=== PATIENT | female | born 1980 | race Caucasian/White ===

== ENCOUNTER 2017-03-04 05:03 | Inpatient (IN) ==
[2017-03-03 09:19] LABS: MANUAL DIFF NEEDED? NO; URINE MICRO REVIEW NEEDED? NO; URINE SOURCE VOIDED
[2017-03-03 09:39] LABS: BASO% 0.2 % (0.0-0.8); BILIRUBIN URINE NEGATIVE (NEGATIVE); BLOOD URINE NEGATIVE (NEGATIVE); COLOR STRAW; GLUCOSE URINE NEGATIVE (NEGATIVE); HEMATOCRIT 45.3 % (37.0-47.0); HEMOGLOBIN 14.9 g/dL (12.0-16.0); LEUKOCYTES URINE NEGATIVE (NEGATIVE); LYMPH# 1.97 X1000 (1.2-3.4); LYMPH% 36.3 % (20.5-51.1); MCH 31.4 PG (27-31); MCHC 32.9 g/dL (33-37); MCV 95.6 FL (81-99); MONO# 0.51 X1000 (0.11-0.59); MONO% 9.4 % (1.7-9.3); MPV 9.5 FL (7.4-10.4); NEUT% 54.1 % (42.2-75.2); NITRITE URINE NEGATIVE (NEGATIVE); PH URINE 5.5; PLT 288 X1000 (130-400); PROTEIN URINE NEGATIVE (NEGATIVE); RBC 4.74 XMIL (4.2-5.4); SP GRAVITY URINE 1.007; TURBIDITY URINE CLEAR (CLEAR); UROBILINOGEN URINE NORMAL (NORMAL)
[2017-03-03 09:41] LABS: UR EPITHELIAL CELLS <10 /HPF (<10); URINE BACTERIA NEGATIVE /HPF; URINE RBC <10 /HPF (<10); URINE WBC <10 /HPF (<10)
--- NOTE | 2017-03-03 13:20 | HISTORY AND PHYSICAL ---
ADMITTING DIAGNOSIS: Dysfunction uterine bleeding with dysmenorrhea and menorrhagia. SUMMARY: Leslie Chaves is a 36-year-old, 2, para 2, who is having heavy painful menstrual cycles. She has failed medical management and an endometrial ablation. We therefore are proceeding with an abdominal hysterectomy. We will not remove her ovaries unless clinically indicated at the time of surgery. Risks, benefits, possible complications and reasonable expectations of surgery have been discussed in detail. PAST MEDICAL HISTORY: Patient has had 2 pregnancies and 2 vaginal deliveries. 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 She has had her gallbladder removed. Tonsils and adenoids have also been removed. She has had a tubal sterilization and endometrial ablation. She has significant abdominal wall laxity and Dr. Gibson will be doing an abdominoplasty following the procedure. ALLERGIES: Neosporin. CURRENT MEDICATIONS: Include Effexor, Prozac, iron and vitamins. PHYSICAL EXAMINATION: WEIGHT: Her weight is 165, blood pressure 122/82. CARDIOVASCULAR: Regular rate and rhythm without murmurs, rubs, or gallops. PULMONARY: Clear. BREASTS: No masses. ABDOMEN: Tender without rebound, rigidity, or guarding. Bowel sounds are present and normal. PELVIC: Examination shows normal external genitalia. Recent Pap smear was read as normal. The uterus is slightly enlarged and tender. There are no adnexal masses. EXTREMITIES: No clubbing, edema or cyanosis. IMPRESSION: Dysfunctional uterine bleeding with dysmenorrhea and menorrhagia. PLAN: We will proceed with abdominal hysterectomy. Following our surgery Dr. Gibson will do an abdominoplasty. Risks of surgery including pain, bleeding, infection, bowel or bladder injury, and anesthesia complications have been discussed in detail. Alternatives to this surgery were also discussed. cc: Law Vaz MD
[2017-03-04] MEDS ORDERED: NS 250 ML ONE (06:26)
[2017-03-04] MEDS ORDERED: BACITRACIN ONE (06:26)
[2017-03-04] MEDS ORDERED: METHYLENE BLUE 0.5% ONE (06:26)
[2017-03-04] MEDS ORDERED: EXPAREL 1.3% ONE (06:27)
[2017-03-04] MEDS ORDERED: PEPCID ONE (06:31)
[2017-03-04] MEDS ORDERED: REGLAN ONE (06:31)
[2017-03-04] MEDS ORDERED: LR 1,000 ML ONE ×2 (06:32→16:24)
[2017-03-04] MEDS ORDERED: TRANSDERM-SCOP ONE (06:32)
[2017-03-04] MEDS ORDERED: VALIUM ONE (06:32)
[2017-03-04] MEDS ORDERED: KEFZOL 2 GM/D5W 2 GM/50 ML IVPB ONE (06:33)
[2017-03-04 07:46] LABS: URINE MICRO REVIEW NEEDED? NO; URINE SOURCE CATH
[2017-03-04 08:05] LABS: BILIRUBIN URINE NEGATIVE (NEGATIVE); BLOOD URINE NEGATIVE (NEGATIVE); COLOR YELLOW; GLUCOSE URINE NEGATIVE (NEGATIVE); LEUKOCYTES URINE NEGATIVE (NEGATIVE); NITRITE URINE NEGATIVE (NEGATIVE); PH URINE 8.5; PROTEIN URINE NEGATIVE (NEGATIVE); SP GRAVITY URINE 1.021; TURBIDITY URINE HAZY (CLEAR); UROBILINOGEN URINE NORMAL (NORMAL)
[2017-03-04 08:07] LABS: UR EPITHELIAL CELLS <10 /HPF (<10); URINE BACTERIA NEGATIVE /HPF; URINE RBC <10 /HPF (<10); URINE WBC <10 /HPF (<10)
--- NOTE | 2017-03-04 09:27 | OPERATIVE NOTE ---
PROCEDURE DATE: 03/04/2017 SURGEON: Law Vaz MD TEACHER LIP READING: Law Perez MD ANESTHESIA: General endotracheal. OPERATION PERFORMED: Total abdominal hysterectomy. PREOPERATIVE DIAGNOSIS: Dysfunctional uterine bleeding with dysmenorrhea and menorrhagia. POSTOPERATIVE DIAGNOSIS: Dysfunctional uterine bleeding with dysmenorrhea and menorrhagia. FINDINGS: Tubes consistent with previous tubal sterilization. PROCEDURE: The uterus was somewhat hyperemic and boggy. SUMMARY: Patient is taken back to the operating room and after general endotracheal anesthesia, was placed in the supine position. The abdomen was prepped and draped in the usual fashion. Dr. Gibson marked the patient for the abdominoplasty to be able to do following my procedure. A Pfannenstiel incision was made. This incision was taken down to the fascia. The fascia was excised transversely. The underlying rectus muscles were bluntly and sharply dissected free. The rectus muscle was in midline. The peritoneum was entered. The O'Bradford-O'León retractor was placed and the bowel was packed out of the operative field. The uterus was grasped with a Gopi clamp and elevated out of the pelvis. The pelvic course of the ureters was identified. We then used the LigaSure device to grasp, cauterized, and excise the round ligament and broad ligament bilaterally. The bladder flap was created. The uterine vessels were skeletonized. The uterine vessels were grasped, cauterized, and excised using the LigaSure device. We then used straight hysterectomy clamp to clamp, excise, and ligate first the cardinal and then the uterosacral ligaments. The vaginal vault was entered and the cervix was dissected off the upper vaginal vault. Angle stitches were placed and the cuff was closed using a running Vicryl suture. The pelvic cavity was irrigated with copious amounts of sterile water. Complete hemostasis was noted. We placed Gelfoam across the top of the vagina. At this point all packs and instruments were removed. Initial sponge, instrument, and needle count were reported as correct. The peritoneum was closed using a running chromic suture. Second sponge, instrument, and needle count reported as correct. The fascia closed using running Vicryl sutures x3 with final sponge, instrument, and needle counts reported as correct. The skin edges were loosely reapproximated using francoise. Blood loss from the procedures approximately 50 mL. Patient had clear urine. She remained intubated for Dr. Gibson's abdominoplasty. cc: Law Vaz MD
[2017-03-04] MEDS ORDERED: KEFZOL 1 GM/D5W 1 GM/50 ML IVPB ONE ×2 (10:38→14:42)
[2017-03-04] MEDS ORDERED: ZOFRAN IV PRN ×2 (15:57→17:50)
[2017-03-04] MEDS ORDERED: DEMEROL IM PRN (15:57)
[2017-03-04] MEDS ORDERED: PHENERGAN IM PRN (15:57)
[2017-03-04] MEDS ORDERED: AMBIEN PO PRN (15:57)
[2017-03-04] MEDS ORDERED: ZOFRAN ODT PO PRN (15:57)
[2017-03-04] MEDS ORDERED: DULCOLAX PR PRN (15:57)
[2017-03-04] MEDS ORDERED: TORADOL IV SCH (15:57)
[2017-03-04] MEDS ORDERED: FLEET ENEMA PR PRN (15:57)
[2017-03-04] MEDS ORDERED: LEVSIN-SL SL PRN (15:57)
[2017-03-04] MEDS ORDERED: SUFENTA ONE (16:22)
[2017-03-04] MEDS ORDERED: VERSED ONE (16:22)
[2017-03-04] MEDS ORDERED: DIPRIVAN 1% ONE (16:22)
[2017-03-04] MEDS ORDERED: DEMEROL ONE (16:24)
[2017-03-04] MEDS ORDERED: TORADOL ONE (17:00)
[2017-03-04] MEDS ORDERED: STERILE WATER INJ. ONE (17:13)
[2017-03-04] MEDS ORDERED: NORCURON ONE (17:13)
[2017-03-04] MEDS ORDERED: LUBRIFRESH PM OPH OINTMENT ONE (17:13)
[2017-03-04] MEDS ORDERED: SODIUM CHLORIDE 0.9% 10 ML ONE (17:13)
[2017-03-04] MEDS ORDERED: NEOSTIGMINE ONE (17:13)
[2017-03-04] MEDS ORDERED: ROBINUL ONE (17:13)
[2017-03-04] MEDS ORDERED: ZOFRAN ONE (17:13)
[2017-03-04] MEDS ORDERED: QUELICIN (DOSE) ONE (17:14)
[2017-03-04] MEDS ORDERED: DECADRON ONE (17:14)
[2017-03-04] MEDS ORDERED: XYLOCAINE-MPF 2% ONE (17:14)
[2017-03-04] MEDS ORDERED: LR 5,000 ML ONE (17:14)
[2017-03-04] MEDS ORDERED: DEMEROL PCA VIAL ONE (17:39)
[2017-03-04] MEDS ORDERED: BENADRYL IV PRN (17:50)
[2017-03-04] MEDS ORDERED: PHENERGAN IV PRN (17:50)
[2017-03-04] MEDS ORDERED: NARCAN IV PRN (17:50)
[2017-03-04] MEDS ORDERED: LR 1,000 ML IV SCH (17:50)
[2017-03-04] MEDS ORDERED: SODIUM CHLORIDE 0.9% INJ PRN (17:50)
[2017-03-04] MEDS: LR 1,000 ML IV SCH ×2 (17:52→22:53)
[2017-03-04] MEDS: DEMEROL PCA VIAL IV PRN (17:58)
[2017-03-04] MEDS: COLACE PO SCH ×2 (18:00→22:52)
[2017-03-04] MEDS: MYLICON PO SCH ×3 (18:02→22:51)
[2017-03-04] MEDS: VITAMIN B-12 PO SCH (18:03)
[2017-03-04] MEDS: EFFEXOR PO SCH (18:07)
[2017-03-04 19:26] LABS: HEMATOCRIT 34.6 % (37.0-47.0); HEMOGLOBIN 11.5 g/dL (12.0-16.0)
[2017-03-04] MEDS: PERIDEX MT SCH ×2 (19:39→22:52)
[2017-03-04] MEDS: KEFZOL 1 GM/D5W 1 GM/50 ML IVPB IV SCH (22:52)
[2017-03-04] MEDS: TORADOL IV SCH (22:52)
[2017-03-05] MEDS: TORADOL IV SCH ×3 (04:56→16:04)
[2017-03-05 05:47] LABS: MANUAL DIFF NEEDED? NO
[2017-03-05 05:58] LABS: HEMATOCRIT 31.7 % (37.0-47.0); HEMOGLOBIN 10.6 g/dL (12.0-16.0); LYMPH# 2.12 X1000 (1.2-3.4); MCHC 33.4 g/dL (33-37); MCV 95.8 FL (81-99); MONO# 1.07 X1000 (0.11-0.59); MONO% 13.1 % (1.7-9.3); MPV 9.5 FL (7.4-10.4); NEUT% 60.9 % (42.2-75.2); PLT 242 X1000 (130-400); RBC 3.31 XMIL (4.2-5.4)
[2017-03-05] MEDS: KEFZOL 1 GM/D5W 1 GM/50 ML IVPB IV SCH ×3 (06:32→22:34)
[2017-03-05] MEDS: LR 1,000 ML IV SCH ×2 (06:33→16:13)
[2017-03-05] MEDS: DEMEROL PCA VIAL IV PRN (08:06)
[2017-03-05] MEDS: VITAMIN B-12 PO SCH (09:03)
[2017-03-05] MEDS: EFFEXOR PO SCH (09:03)
[2017-03-05] MEDS: MYLICON PO SCH ×4 (09:04→21:09)
[2017-03-05] MEDS: COLACE PO SCH ×2 (09:04→21:09)
[2017-03-05] MEDS: PERIDEX MT SCH ×2 (09:04→21:09)
[2017-03-05] MEDS ORDERED: TORADOL PO SCH (14:19)
[2017-03-05] MEDS ORDERED: D/C PCA XX ONE (15:00)
--- NOTE | 2017-03-05 16:41 | OPERATIVE NOTE ---
PROCEDURE DATE: 03/04/2017 PROCEDURE PERFORMED: Cosmetic abdominoplasty and cosmetic Vanegas mastopexy. SURGEON: Dr. Clifford Gibson. ICD 10 DIAGNOSIS CODE FOR THIS CASE: Z41.1 cosmetic surgery. CPT CODE: 78488-B abdominoplasty, 64601 mastopexy, 58050-61 mastopexy of the other side. INDICATIONS FOR PROCEDURE: This patient is a 36-year-old, white female who has had weight loss. She has had a gastric bypass and lost over 100 pounds. She has excess skin on her lower abdomen, lax muscles, and ptotic breasts. She wants to have body contouring procedures done at the same time as she has a hysterectomy performed by Dr. Vaz. She is an excellent candidate for the procedures. She was seen in the office for informed consent for both of those procedures on 02/26/2017. The consent for the abdominoplasty included the fact that she knew we would be working on her abdominal wall. The goals of the procedure was to remove the extra skin and tighten the underlying muscles. She understood the risks including infection, blood loss, blood clots in the legs, heart problems, lung problems, allergic reactions, or blood and serum collections in the operative sites that might require drainage. She understands the exact size and shape cannot be guaranteed, as with nonoperative abdomens, there can be some asymmetry from side to side. She knows her skin incisions will be from waist to waist and around the umbilicus. That is where the scars will be. She knows her old umbilicus will be brought through a new hole. She understands her abdominal sensation can be decreased by this operation for a year to year and a half on the lower abdomen. She understands she cannot do any strenuous lifting for 8 weeks. She knows she cannot have a breast reconstruction with a TRAM flap in the future. She knows that cosmetic surgery does not go to the insurance company. She also had consent for a mastopexy. In this case, she understood that she would have a breast lift to reposition her breast tissue and reposition her nipples. We would have to do a small resection on her left side since that breast was bigger. She understands all the general risks are the same as those discussed for the abdominoplasty in terms of infection, blood loss, blood clots in the legs, heart problems, lung problems, allergic reactions, or blood and serum collections in the operative sites. She understands the exact size and shape of her breasts cannot be guaranteed, as with nonoperative breasts, there can be some asymmetry from side to side. She knows the skin incisions will be around the areola, from the areola to the inframammary fold, and within the inframammary fold, that is where the scars will be. She understands she has to continue to have mammography of these breasts since she still has breast tissue in there. DESCRIPTION OF PROCEDURE: The patient was brought to the operating room after she was marked in outpatient surgery in the standing and sitting positions for the breast work and the abdominal work. She went to the operating room, had general anesthesia, and the kennedy were reviewed with Dr. Vaz. She was then prepped and draped. He proceeded to do the total abdominal hysterectomy and then closed the fascia and stapled the skin closed. Then she was re-prepped and draped for the cosmetic procedure. The abdominoplasty was done first. The kennedy were rechecked with her in the flexed position and then the crucial corners were tattooed with methylene blue. The upper incision was made with a knife and then dissected with electrocautery to make the upper incision go towards the xiphoid process. Care was taken to preserve blood supply. She was put in the flexed position. The ability to reach the lower incision was confirmed. The lower incision was then made with a knife and then the skin was removed from lateral to medial with electrocautery cutting around the umbilicus with a 15 blade. She then had the muscles plicated in the midline with #1 Maxon stitches. The umbilicus was tagged superiorly with a silk stitch. She was irrigated with bacitracin solution. Then the muscles and the lower subcutaneous incision were injected with Exparel for postoperative pain control. She was tacked closed over 4 drains. Liposuction was done of the flanks. Then she was closed with 2-0 Polysorb interrupted sutures in the fat, running 3-0 Polysorb deep dermal suture, followed by running 4-0 Biosyn subcuticular stitch. The drains were secured with silk drain stitches. The umbilicus was brought through a round hole, held in place with 5-0 Polysorb interrupted deep dermal sutures, and then 5-0 nylon stitches placed in half buried horizontal mattress fashion. Attention was then turned to the breasts. The kennedy that were made in outpatient surgery were temporarily tacked closed with silk sutures. They were found to be a little tight so the whole W pattern was moved down to just under a centimeter and the length of the W verticals was extended half a centimeter. She then had the nipples marked with a 38 mm nipple-areola marker and everything under the W pattern was deepithelialized. The upper skin flaps were then incised with a knife and then dissected with electrocautery to make upper breast skin flaps approximately 1 cm thick up to the level of the pectoralis major muscles. Then, with the patient in the sitting position, she was irrigated with bacitracin solution. The breast tissue was tacked to the pectoralis muscle with 2-0 Polysorb sutures in an arch. Some extra breast tissue was removed from the superior and lateral superior aspects of the left breast to decrease its volume. This was symmetrically done to have an appropriate amount of lifting on both sides that would be equal. She was again irrigated with bacitracin solution. She was tacked closed over drains. She was put in the sitting position, and the size and shape were found to be good. The inferior incision was closed with 3-0 Polysorb interrupted deep dermal sutures at the junction of the flaps, followed by a running 3-0 Polysorb deep dermal suture, followed by running 4-0 Biosyn subcuticular stitch. She was then put in sitting position. The left nipple exit was marked with a 38 mm nipple-areola marker. This was de-epithelialized, then cut in a cruciate excision to allow protrusion of the nipples. The nipples were inset with 3-0 and 4-0 Polysorb interrupted deep dermal sutures, followed by a running 4-0 Biosyn subcuticular stitch. The drains were secured with silk drain stitches. The total amount of resection for the abdominal skin was 3022 g. She had 59 g of tissue removed from the left breast. She tolerated the procedure well and was transported to the recovery room in good condition. cc: MD Law Henderson MD
[2017-03-05] MEDS: NORCO-10 PO PRN (21:08)
[2017-03-05] MEDS: TORADOL PO SCH (22:46)
[2017-03-06] MEDS: NORCO-10 PO PRN ×3 (03:20→11:05)
[2017-03-06] MEDS: TORADOL PO SCH (05:59)
[2017-03-06] MEDS: KEFZOL 1 GM/D5W 1 GM/50 ML IVPB IV SCH (05:59)
--- NOTE | 2017-03-06 06:15 | DISCHARGE SUMMARY ---
ADMISSION DATE: 03/04/2017 DISCHARGE DATE: 03/06/2017 ADMITTING DIAGNOSIS: Dysfunctional uterine bleeding with dysmenorrhea and menorrhagia. POSTOPERATIVE DIAGNOSIS: Dysfunctional uterine bleeding with dysmenorrhea and menorrhagia. PROCEDURE: Total abdominal hysterectomy followed by plastic surgery by Dr. Gibson. SUMMARY: Leslie Chaves is a 36-year-old, 2, para 2, with dysfunctional uterine bleeding, dysmenorrhea and menorrhagia. After discussing options with the patient, she was admitted to the hospital and underwent a total abdominal hysterectomy. There were no intraoperative complications. Following my surgery, Dr. Gibson did plastic cosmetic surgery. Again, he had no intraoperative complications. Her admission hemoglobin and hematocrit was 14.9/45.3 with discharge hemoglobin and hematocrit being 10.6/31.7. Dr. Gibson thought this was appropriate blood loss for the procedures that he performed. The patient has been afebrile and all vital signs are stable. Today cardiac and pulmonary examinations are normal. Bowel and bladder function was normal. She is having scant vaginal bleeding. Dr. Gibson is happy with the progress of her incisions. Ms. Chaves will be discharged today and I will see her back in the office in a week. Dr. Gibson will see her the first part of next week also. She will continue her current home medications. She has prescriptions for [place] 10 to take at home. She will call if there are any fevers or signs of infection or heavy bleeding. cc: Law Vaz MD
[2017-03-06 08:04] LABS: MANUAL DIFF NEEDED? NO
[2017-03-06 08:06] LABS: BASO% 0.1 % (0.0-0.8); EOS# 0.01 X1000 (0.0-0.7); EOS% 0.1 % (0.0-10.0); HEMATOCRIT 29.5 % (37.0-47.0); HEMOGLOBIN 9.7 g/dL (12.0-16.0); IMM GRAN# 0.03 X1000 (0.0-0.04); IMM GRAN% 0.3 % (0.0-0.5); LYMPH# 2.01 X1000 (1.2-3.4); LYMPH% 22.7 % (20.5-51.1); MCH 31.9 PG (27-31); MCHC 32.9 g/dL (33-37); MONO# 0.86 X1000 (0.11-0.59); MONO% 9.7 % (1.7-9.3); NEUT% 67.1 % (42.2-75.2); PLT 239 X1000 (130-400); RBC 3.04 XMIL (4.2-5.4)
[2017-03-06] MEDS: VITAMIN B-12 PO SCH (08:53)
[2017-03-06] MEDS: EFFEXOR PO SCH (08:53)
[2017-03-06] MEDS: MYLICON PO SCH (08:54)
[2017-03-06] MEDS: PERIDEX MT SCH (08:54)
[2017-03-06] MEDS: COLACE PO SCH (08:54)
[2017-03-06 11:04] VITALS: BP 126/69
== END 2017-03-06 13:45 | disposition home or self-care (01) ==
LOC: SURHOLD 05:03 → EDSTATUS 07:00 → 4N 09:15
PROVIDERS: ADMIT Obstetrics & Gynecology; ATTEND Obstetrics & Gynecology